=== PATIENT | male | born 2000 ===

== ENCOUNTER 2024-07-27 00:02 | Outpatient (CLI) | payer OTHER, SELFPAY | END 2024-07-27 00:03 | disposition home or self-care (01) | LOC: AMB 08-11 02:07 | PROVIDERS: Visit Provider Family Medicine | DX: F91.9 Conduct disorder, unspecified (principal); F10.129 Alcohol abuse with intoxication, unspecified; F12.129 Cannabis abuse with intoxication, unspecified | CPT/HCPCS: A0425; A0429 ==

== ENCOUNTER 2024-07-27 00:39 | Emergency (ER) | payer MEDICAID, SELFPAY ==
[2024-07-27] VITALS (17 sets, daily range): BP systolic 122–127; BP diastolic 74–82; PULSE 90–98; RESP 16; TEMP 36.7; O2SAT 94–98; BMI 21.9
--- OUTSIDE RECORDS SUMMARY | 2024-07-27 00:41 | XMS_ITS | Clinical Summary ---
Author Organization [employer] [facility] Address [place], [place] [address] Care Team Providers Care Roving Frame Tender Name Role Phone Medhat Carranza MD Primary Care Provider [phone] Allergies No known active allergies Medications acetaminophen (TYLENOL EXTRA STRGTH) 500 mg tabletIndications: Scrotal pain Take 1 Tablet (500 mg) by mouth every 6 hours if needed for Pain. 100 Tablet 1 10/14/19 24 Active ibuprofen (ADVIL; MOTRIN) 600 mg tabletIndications: Scrotal pain Take 1 Tablet (600 mg) by mouth every 8 hours if needed for Pain. Maximum of 3200 mg in 24 hours. 60 Tablet 2 10/14/19 24 Active loperamide (IMODIUM) 2 mg capsuleIndications :Gastroenteritis Take 2 capsules (4mg) orally with 1st loose stool, then 1 capsule (2mg) with other loose stools. Max 16 mg in 24 hrs. 40 Capsule 07/06/19 25 Active ondansetron (ZOFRAN ODT) 4 mg disintegrating tabletIndications: Gastroenteritis Place 1 Tablet (4 mg) on the tongue every 8 hours if needed for Nausea/Vomi ting. 10 Tablet 07/06/19 25 Active ondansetron (ZOFRAN ODT) 4 mg disintegrating tabletIndications: Gastroenteritis Place 1 Tablet (4 mg) on the tongue every 8 hours if needed for Nausea/Vomi ting. 10 Tablet 07/06/19 25 025 Discontinued loperamide (IMODIUM) 2 mg capsuleIndications :Gastroenteritis Take 2 capsules (4mg) orally with 1st loose stool, then 1 capsule (2mg) with other loose stools. Max 16 mg in 24 hrs. 40 Capsule 07/06/19 25 025 Discontinued Active Problems Problem Noted Date Diagnosed Date Closed displaced fracture of proximal phalanx of right thumb 12/31/2018 Renal stone 11/12/2008 Encounters Date Type Department Care Team Description 07/06/2024 7:18 AM TECHNICAL PHOTOGRAPHER - 07/06/2024 11:10 AM [facility] Emergency [facility] [address] [place] [address] Alexey Cabezas MD Ran, Renzhong, MD Gastroenteritis (Primary Dx); Nausea and vomiting, unspecified vomiting type; Diarrhea, unspecified type Discharge Disposition: Home Self Care 07/06/2024 Travel from Last 3 Months Immunizations Name Administration Dates Next Due COVID-19 VACCINE SPIKEVAX (M ODERNA 50MCG/0.5ML) 12YO+ PFS 05/21/2023 COVID-19 vaccine (Pfizer-Bio NTech 30mcg/0.3mL) 12YO+ PRACHI-SUCROSE PF, MDV 09/08/2021 DT (Age < 7 years) 04/07/2007 [id number] 01/29/2005,07/14/2002,2000 DTaP 2000 HIB HbOC (HibTITER) 2000 HIB-HepB (Comvax) 01/29/2005,07/14/2002 Hepatitis A (Peds) 03/24/2009 Hepatitis B (Peds) 12/20/1999 Inactivated Polio Vaccine 2000 Influenza, IIV4 05/21/2023 MENINGOCOCCAL VACCINE 2 VIAL 2MO-55YO (MENVEO) 03/10/2014 MMR 01/29/2005,07/14/2002 Tdap 10/21/2019,02/25/2013 Varicella Vaccine 02/25/2013,07/14/2002 Social History Tobacco Use Types Packs/Day Years Used Date Smoking Tobacco: Some Days Cigarettes 0.5 8.7 Started: 11/25/2015 Smokeless Tobacco: Never Tobacco Cessation:Ready to Q uit: Not Asked; Counseling Given: Not Answered Comments:father smokes outside Alcohol Use Standard Drinks/Week Comments Not Currently 0 (1 standard drink = 0.6 oz pur e alcohol) [facility] Utilities Answer Date Recorded Do you have trouble paying f or utilities (for example, heat, electricity, water, phone)? Yes 07/03/2023 PHQ-2 Answer Date Recorded PHQ-2 TOTAL SCORE 5 05/21/2023 Social Connections Answer Date Recorded Do you often feel lonely or isolated from those around you? 0 07/03/2023 Financial Resource Strain Answer Date R ecorded Difficulty of Paying Living Expenses 1 07/03/2023 Difficulty of Paying Living Expenses 2 07/03/2023 Food Insecurity Answer Date Recorded Do you worry your food will run out before you are able to buy more? 2 07/03/2023 Transportation Needs Answer Date Record ed Does lack of transportation keep you from medica l appointments? 2 07/03/2023 Does lack of transportation keep you from work, meetings or getting things that you need? 2 07/03/2023 Housing Stability Answer Date Recorded What is your housing situation today? 1 07/03/2023 Interpersonal Safety Answer Date Record ed Are you being hit, kicked, p ushed or yelled at (see row info)? No 07/06/2024 Interpersonal Safety Abuse 12 - 18 Not on file 07/06/2024 Interpersonal Safety Ambulatory Vulnerability No t on file 07/06/2024 Sex and Gender Information Value Date Recorded Sex Assigned at Not on file Legal Sex Male 6:20 AM TECHNICAL PHOTOGRAPHER Gender Identity Not on file Sexual Orientation Not on file Obstetrics History Last Filed Vital Signs Vital Sign Reading Time Taken Comments Blood Pressure 120/78 07/06/2024 10:00 AM TECHNICAL PHOTOGRAPHER Pulse 84 07/06/2024 10:00 AM TECHNICAL PHOTOGRAPHER Temperature 37 C (98.6 F) 07/06/2024 7:24 AM TECHNICAL PHOTOGRAPHER Respiratory Rate 22 07/06/2024 7:24 AM TECHNICAL PHOTOGRAPHER Oxygen Saturation 100% 07/06/2024 10:00 AM TECHNICAL PHOTOGRAPHER Inhaled Oxygen Concentration - - Weight 64.9 kg (143 lb) 07/06/2024 7:24 AM TECHNICAL PHOTOGRAPHER Height 170.2 cm (5' 7) 07/06/2024 7:24 AM TECHNICAL PHOTOGRAPHER Body Mass Index 22.4 07/06/2024 7:24 AM TECHNICAL PHOTOGRAPHER Plan of Treatment Health Maintenance Due Date Last Done Comments HPV series for age 9-26 (1 - Male 3-dose series) 11/24/2014 Hepatitis C screening for ag e 18-79 11/24/2017 Pneumococcal series for age 6-49 (1 of 2 - PCV) 11/24/2018 COVID-19 vaccine series (3 - season) 2024 05/21/2023, 09/08/2021 Influenza for age 9-49 03/01/2024 05/21/2023 Depression screening for age 12+ 05/21/2024 05/21/2023, 06/01/2020, 05/31/2020, Additional history exists BMI (ht and wt on same day) for age 18+ 07/03/2024 07/03/2023, 05/21/2023, 09/13/2020, Additional history exists Tetanus booster 10/20/2029 10/21/2019, 02/25/2013 Tdap Completed 10/21/2019, 02/25/2013 HIV for age 15-65 Completed 11/18/2022 Procedures Procedure Name Priority Date/Time Associated Diagnosis Comments LC HIV-1/O/2, 4TH GENERATION STAT 11/18/2022 3:54 PM CDT Penis pain Left lower quadrant abdominal pain from Last 3 Months or Most Recently Relevant to Health Maintenance Results * LC HIV-1/O/2, 4TH GENERATION (11/18/2022 3:54 PM CDT) HIV Scr 4th Gen Non Reactive Non Reactive 11/21/2022 11:[address] [facility] ([facility]) Comment: HIV Negative HIV-1/HIV-2 antibodies and HIV-1 p24 antigen were NOT detected. There is no laboratory evidence of HIV infection. Blood BLOOD SPECIMEN / Unknown Venipuncture / Unknown 11/18/2022 3:54 PM CDT 11/18/2022 3:57 PM CDT Narrative [facility] ([facility]) - 11/21/2022 11:09 AM CDT Performed at: [address] [place] [id number] Cake Puller: Brandt Allen MD, Phone: [phone] Nataly Miller NP LABORATORY Final Result [facility] ([facility]) [address] [place] [id number], from Last 3 Months or Most Recently Relevant to Health Maintenance Insurance [facility] [employer] [place] [id number] [employer] DEPT [id number] [facility] [place] [id number] Care Teams Roving Frame Tender Relationship Specialty Start Date End Date Medhat Carranza MD [address] [facility] [place] [address] PCP - General Family Practice 10/14/23
--- NOTE | 2024-07-27 00:58 | ED_ITS ---
HPI - General Adult General Chief complaint: Alcohol/Intoxication Stated complaint: ETOH Time Seen by Provider: 07/27/24 00:41 Source: patient, EMS and police Mode of arrival: EMS History of Present Illness HPI narrative: 24 of male presents the emergency department for evaluation of alcohol intoxication, referred by police. He was drinking heavy amounts of alcohol with friends in a social setting and did smoke some marijuana. He admits that he had too much to drink and started getting aggressive IV wrestling with a friend. The girlfriend of that friend became concerned. The patient stated that he would ?kill that friend? and then started making statements that he might harm himself. He denies a prior history of suicide attempt or significant mental health issues. No previous hospitalization for mental health issues. He was polite and cooperative with police and EMS. Did not require any medications or sedation. Peripheral IV was placed but not needed. He arrives to the ED. As we were discussing the events of the night, he tells me that he ?got caught up in the heat of the moment?. He denies any suicidal or homicidal thoughts currently. No trauma or injury. No painful areas. He denies any stimulants or hallucinogens on board. No recent self-harm, no other concerns today. He denies long-term medications, denies allergies, denies prior surgeries. Does not have a pattern of these types of visits in the ED. ROS negative times 12 systems with the exception of intoxication. Related Data Previous Rx's ?Medication ?Instructions ?Recorded doxycycline monohydrate 100 mg 100 mg PO BID #20 caps 04/28/23 capsule Allergies Allergy/AdvReac Type Severity Reaction Status Date / Time No Known Drug Allergies Allergy Verified 04/28/23 18:41 [facility] Medical History (Updated 07/27/24 @ 01:10 by Scooby Gudino RN) No significant past medical history Surgical History (Updated 07/27/24 @ 01:10 by Scooby Gudino RN) No significant past surgical history Social History Smoking Status: Current every day smoker How often do you have a drink containing alcohol: monthly or less How often do you have six or more drinks on one occasion: Less than monthly AUDIT-C Alcohol total score: 2 Non-prescribed substance use: marijuana (any form) Exam Const: Vital Signs, click to edit/add: Vital Signs - 24 hr 07/27/24 00:43 07/27/24 01:10 07/27/24 01:21 Temperature 98.1 F Pulse Rate Pulse Rate [Pulse Oximeter] 98 Respiratory Rate 16 Blood Pressure [Ri ght Upper Arm] 127/82 Pulse Oximetry 98 98 94 Oxygen Delivery Me thod Room Air 07/27/24 01:30 07/27/24 01:40 07/27/24 01:45 Temperature 98.1 F Pulse Rate Pulse Rate [Pulse Oximeter] 93 Respiratory Rate 16 Blood Pressure [Ri ght Upper Arm] 122/74 Pulse Oximetry 94 95 98 Oxygen Delivery Me thod Room Air 07/27/24 01:45 07/27/24 01:50 07/27/24 02:00 Temperature Pulse Rate 97 Pulse Rate [Pulse Oximeter] Respiratory Rate Blood Pressure [Ri ght Upper Arm] Pulse Oximetry 95 95 95 Oxygen Delivery Me thod 07/27/24 02:10 07/27/24 02:15 07/27/24 02:20 Temperature Pulse Rate 90 Pulse Rate [Pulse Oximeter] Respiratory Rate Blood Pressure [Ri ght Upper Arm] Pulse Oximetry 97 97 97 Oxygen Delivery Me thod 07/27/24 02:30 07/27/24 02:40 07/27/24 02:45 Temperature Pulse Rate 97 Pulse Rate [Pulse Oximeter] Respiratory Rate Blood Pressure [Ri ght Upper Arm] Pulse Oximetry 97 95 95 Oxygen Delivery Me thod 07/27/24 02:50 Temperature Pulse Rate Pulse Rate [Pulse Oximeter] Respiratory Rate Blood Pressure [Ri ght Upper Arm] Pulse Oximetry 95 Oxygen Delivery Me thod Documenting provider has reviewed patient's vital signs: yes Common normals: no apparent distress, oriented x3 and alert General appearance: cooperative, comfortable and well kempt Other: Good eye contact, answers questions appropriately. No slurring. Mild signs of intoxication. HENMT: Common normals: normocephalic, head/scalp atraumatic, moist oral mucous membranes, oropharynx normal and dentition normal Head and scalp: normocephalic and atraumatic Face and sinus: normal facial exam Eye: Common normals: PERRL, EOMs intact bilaterally and conjunctivae normal General eye: normal appearance of both eyes Conjunctiva: conjunctiva(e) normal Pupil: PERRL Neck & C-Spine: Common normals: full ROM and no lymphadenopathy General: normal visual inspection Chest: Common normals: inspection of chest normal and palpation of chest normal Resp: Common normals: normal respiratory effort, no use of accessory muscles and clear to auscultation bilaterally Effort & inspection: able to speak in complete sentences Auscultation: clear to auscultation bilaterally Cardio: Common normals: regular rate, regular rhythm, S1 normal heart sound, S2 normal heart sound and no murmurs Rate: regular rate Rhythm: regular rhythm Heart sounds: S1 normal and S2 normal GI: Common normals: Normal to inspection, nondistended, normoactive bowel sounds present, soft to palpation, non-tender, no hepatosplenomegaly and no masses Palpation: soft and no hepatosplenomegaly : Common normals: no CVA tenderness Bladder/kidney exam: no CVA tenderness Back & Pelvis: Common normals: no CVA tenderness and thoracic and lumbar spine normal to inspection Extremity: Common normals: normal to inspection, normal capillary refill, no joint enlargement and no pedal edema Neuro: Common normals: oriented x3, CN's II-XII intact bilaterally and moves all extremities Sensorium/orientation: alert Speech: speech normal Motor exam: strength 5/5 throughout Psych: Appearance: well kempt Attitude: engaged Activity/motor behavior: appropriate eye contact Insight: fair Judgement: fair Other: Mild intoxication, but does seem to have some reasonable decision making. Skin: Common normals: no rashes or lesions noted General skin exam: no rashes or lesions noted Course Course ED Course: 24-year-old male with acute alcohol intoxication, impulsive threats of harm to another person and self while intoxicated, feelings have resolved. Patient did vomit x1 prior to EMS arrival but is not showing any signs of persistent vomiting. He is offered Zofran and declines. At this point, I do not think it is quite safe to send him out to the same group of friends that he was drinking alcohol with. I would like for him to sleep and rest for a couple hours, let him have some fluids and a snack and sober up. Will re-examine is he is having suicidal or homicidal ideation, if not will plan to discharge home then. No need for blood work as long as his vitals remained stable. Consider additional workup if patient still verbalizes suicidal or homicidal thoughts. Reevaluation(s) Reevaluation #1: Reassessed patient after 2-1/2 hours. He continues to follow commands, is not verbalizing any suicidal or homicidal thoughts, reflects remorse fully on the events of the night. States that he does not need any assistance with alcohol cessation or outpatient mental health resources. He would like to go home and sleep in his own bed and has sober adult friends waiting out in the lobby to help him with this. Think he is medically safe to discharge at this time. Vital Signs Vital signs: Initial Vital Signs Temperature 98.1 F 07/27/24 00:43 Temperature Source Temporal Artery Scan 07/27/24 00:43 Pulse Rate 98 07/27/24 00:43 Respiratory Rate 16 07/27/24 00:43 Blood Pressure 127/82 07/27/24 00:43 Blood Pressure Mean 97 07/27/24 00:43 Blood Pressure Position Sitting 07/27/24 00:43 Pulse Oximetry 98 07/27/24 00:43 Oxygen Delivery Method Room Air 07/27/24 00:43 Vital Signs Temperature 98.1 F 07/27/24 00:43 Pulse Rate 98 07/27/24 00:43 Respiratory Rate 16 07/27/24 00:43 Blood Pressure 127/82 07/27/24 00:43 Pulse Oximetry 98 07/27/24 00:43 Oxygen Delivery Method Room Air 07/27/24 00:43 Temperature 98.1 F 07/27/24 01:45 Pulse Rate 97 07/27/24 02:45 Respiratory Rate 16 07/27/24 01:45 Blood Pressure 122/74 07/27/24 01:45 Pulse Oximetry 95 07/27/24 02:50 Oxygen Delivery Method Room Air 07/27/24 01:45 Discharge Plan Discharge Clinical Impression: Alcoholic intoxication, Threatening to others Patient Disposition: Home w/ Parent or Adult Condition: Improved Instructions: Alcohol Intoxication (DC) Additional Instructions: As we discussed, you show signs of alcohol intoxication but not dangerous levels that would be immediately threatening to your health. The types of threats that you made while intoxicated can be signs of some underlying emotional distress but we are not detecting any signs of a severe mental health crisis at this time. Consider speaking with a therapist or your primary care doctor to discuss these feelings further. I would not recommend drinking alcohol in the excessive amounts that you consumed today. If you have worsening of suicidal thoughts or if you need help with alcohol treatment, please seek medical care. It is okay to use Tylenol 1000 mg every 6 hours and or ibuprofen 600 mg every 6 hours as needed for headache, mild stomach discomfort or other general aches today. You are medically cleared to return to work after 8 a.m.. Activity Level: Activity as Tolerated Discharge Diet: Regular Prescriptions: No Action doxycycline monohydrate 100 mg capsule 100 mg PO BID Qty: 20 0RF Follow Up/Referrals: Provider,Not a Local [Primary Care Provider] - Stand Alone Forms: [facility] Info Instructions
--- OUTSIDE RECORDS SUMMARY | 2024-07-27 01:08 | XMS_ITS | Clinical Summary ---
Author Organization [facility] Address [place], [place] [address] Care Team Providers Care Setter Helper Name Role Phone Medhat Carranza MD Primary Care Provider [phone] Allergies No known active allergies Medications acetaminophen [...] Department Care Team Description 07/06/2024 7:18 AM PIANO REFINISHER - 07/06/2024 11:10 AM [facility] Emergency [facility] [address] [place] [address] Alexey Cabezas MD Ran, Renzhong, MD Gastroenteritis (Primary Dx); Nausea and vomiting, unspecified vomiting type; Diarrhea, unspecified type Discharge Disposition: Home Self Care 07/06/2024 Travel from Last 3 Months Immunizations Name Administration Dates Next Due COVID-19 VACCINE SPIKEVAX (M ODERNA 50MCG/0.5ML) 12YO+ PFS 05/21/2023 COVID-19 vaccine (Pfizer-Bio NTech 30mcg/0.3mL) 12YO+ PRACHI-SUCROSE PF, MDV 09/08/2021 DT (Age < 7 years) 04/07/2007 [id number] 01/29/2005,07/14/2002,2000 DTaP 2000 HIB HbOC (HibTITER) 2000 [...] drink = 0.6 oz pur e alcohol) [facility] Utilities Answer Date Recorded Do you have [...] on file Legal Sex Male 6:20 AM PIANO REFINISHER Gender Identity Not on file Sexual Orientation Not on file Obstetrics History Last Filed Vital Signs Vital Sign Reading Time Taken Comments Blood Pressure 120/78 07/06/2024 10:00 AM PIANO REFINISHER Pulse 84 07/06/2024 10:00 AM PIANO REFINISHER Temperature 37 C (98.6 F) 07/06/2024 7:24 AM PIANO REFINISHER Respiratory Rate 22 07/06/2024 7:24 AM PIANO REFINISHER Oxygen Saturation 100% 07/06/2024 10:00 AM PIANO REFINISHER Inhaled Oxygen Concentration - - Weight 64.9 kg (143 lb) 07/06/2024 7:24 AM PIANO REFINISHER Height 170.2 cm (5' 7) 07/06/2024 7:24 AM PIANO REFINISHER Body Mass Index 22.4 07/06/2024 7:24 AM PIANO REFINISHER Plan of Treatment Health Maintenance Due Date [...] Reactive Non Reactive 11/21/2022 11:09 AM CDT [facility] ([facility]) Comment: HIV Negative HIV-1/HIV-2 antibodies and HIV-1 p24 antigen were NOT detected. There is no laboratory evidence of HIV infection. Blood BLOOD SPECIMEN / Unknown Venipuncture / Unknown 11/18/2022 3:54 PM CDT 11/18/2022 3:57 PM CDT Narrative [facility] ([facility]) - 11/21/2022 11:09 AM CDT Performed at: [address] [place] [phone] Foxing Painter: Brandt Allen MD, Phone: [phone] Nataly Miller NP LABORATORY Final Result [facility] ([facility]) [address] [place] [id number], from Last 3 Months or Most Recently Relevant to Health Maintenance Insurance [facility] [employer] [place] [id number] [employer] DEPT [id number] [facility] [place] [id number] Care Teams Setter Helper Relationship Specialty Start Date End Date Medhat Carranza MD [address] [facility] [place] [address] PCP - General Family Practice 10/14/23
== END 2024-07-27 03:53 | disposition home or self-care (01) ==
PROVIDERS: Emergency Provider Family Medicine
DX: F10.129 Alcohol abuse with intoxication, unspecified (principal); R45.5 Hostility
CPT/HCPCS: 94761; 99283